=== PATIENT | female | born 1980 | race Hispanic/Latino ===

== ENCOUNTER 2022-01-04 12:57 | Emergency (ER) | payer SELFPAY ==
[2022-01-04 13:07] VITALS: BP 112/52; PULSE 75; RESP 16; TEMP 36.9; O2SAT 100
--- NOTE | 2022-01-04 13:19 | ED.SKABFB ---
HPI - Skin/Abscess/Foreign Bdy General Chief complaint: Skin/Abscess/Foreign Body Stated complaint: Rash Time Seen by Provider: 01/04/22 13:08 Source: patient Mode of arrival: ambulatory Limitations: no limitations History of Present Illness HPI narrative: Patient presents today complaining of severely pruritic rash to her left arm, left lower abdomen, right lower abdomen, and groin x3 days that has been worsening since onset. She has tried multiple [id number]-hsotpry treatments to include calamine lotion and Benadryl without relief. Reports rash has been fluid-filled. Reports similar rash last year that was poison jake. States has had exposure to poison jake and believes he has exposed her currently. Related Data Allergies Allergy/AdvReac Type Severity Reaction Status Date / Time No Known Allergies Allergy Verified 01/04/22 13:07 Review of Systems Review of Systems: CONSTITUTIONAL: Denies body aches, fever, chills, or sweats. EYES: Denies visual changes, redness, or discharge. ENT: Denies rhinorrhea, congestion, sore throat, or otalgia. CARDIOVASCULAR: Denies chest pain, palpitations, or edema. RESPIRATORY: Denies cough or dyspnea. GASTROINTESTINAL: Denies abdominal pain, nausea, vomiting, or diarrhea. GENITOURINARY: Denies dysuria or hematuria. SKIN:+Pruritic rash MUSCULOSKELETAL: Denies back pain, joint pain, or myalgia. NEUROLOGIC: Denies headache, numbness, tingling, or weakness. PSYCH: Denies depression or anxiety. PMFSH Comments At time of signature, I have reviewed and agree with nursing past medical, surgical, social and family history unless otherwise noted. Please see nursing chart for further information. There is no relevant family history pertinent to the presenting complaint Exam Narrative: GENERAL: Well-appearing, well-nourished, and in no acute distress. HEAD: Normocephalic, atraumatic. EYES: EOMI. No redness or drainage. Conjunctivae normal. ENT: Mucous membranes pink and moist. NECK: Normal AROM. CHEST: No respiratory distress. EXTREMITIES: Normal range of motion. No edema. SKIN: Warm, dry. Capillary refill normal. Normal skin turgor. Erythematous maculopapular rash to the left antecubital fossa, bilateral lateral lower abdomen, and bilateral groin. NEURO: No focal deficits. Alert and oriented x3. Gait steady. PSYCH: Normal affect. No signs of depression or anxiety. Course Course Level of Care: Express Care Visit Vital Signs Vital signs: Vital Signs Temperature 98.5 F 01/04/22 13:07 Pulse Rate 75 01/04/22 13:07 Respiratory Rate 16 01/04/22 13:07 Blood Pressure 112/52 L 01/04/22 13:07 Pulse Oximetry 100 01/04/22 13:07 Oxygen Delivery Room Air 01/04/22 13:07 Temperature 98.5 F 01/04/22 13:07 Pulse Rate 75 01/04/22 13:07 Respiratory Rate 16 01/04/22 13:07 Blood Pressure 112/52 L 01/04/22 13:07 Pulse Oximetry 100 01/04/22 13:07 Oxygen Delivery Room Air 01/04/22 13:07 Reviewed MDM - Skin/Abscess/Foreign Bdy Differential Diagnosis Differential diagnosis: Likely dermatophytosis, urticaria, cellulitis, eczema, impetigo and contact dermatitis Critical Care Time Critical Care Time Critical Care Time: No Discharge Plan Discharge Clinical Impression: Contact dermatitis Qualifiers: Contact dermatitis type: unspecified Contact dermatitis trigger: unspecified trigger Qualified Code(s): L25.9 - Unspecified contact dermatitis, unspecified cause Patient Disposition: Home, Self-Care Condition: Stable Instructions: Contact Dermatitis (DC) Additional Instructions: Your symptoms are likely due to contact dermatitis (poison jake). Please take the steroids as prescribed until gone. Continue Benadryl or calamine lotion as needed. Follow-up with your doctor in 1 week if symptoms are not improving. Prescriptions: New prednisone 10 mg tablet See Rx Instructions .ROUTE .COMPLEX Qty: 42 0RF Rx Instructions: 5 tabs daily x3
== END 2022-01-04 13:26 | disposition home or self-care (01) ==
PROVIDERS: Emergency Provider Nurse Practitioner; PCP Physician Assistant
DX: L25.9 Unspecified contact dermatitis, unspecified cause (principal)
CPT/HCPCS: 99203; G0463